=== PATIENT | female | born 1965 | race Caucasian/White ===

== ENCOUNTER 2017-03-08 18:24 | Emergency (ER) | payer MEDICAID ==
[~2017-03-08] VITALS: Ht 165.1 cm; Wt 111.1 kg
--- NOTE | 2017-03-08 19:00 | NUR ---
Came to ER c/o chest pain on and off for few days. Denies chest pain at this time. Noted with high blood pressure. Pt states this is new.
[2017-03-08 19:08] LABS: BASOPHILS # (AUTO) 0.1 K/uL (0.0-8.0); BASOPHILS % (AUTO) 0.6 % (0.0-2.0); EOSINOPHILS % (AUTO) 0.4 % (0.0-7.0); HEMATOCRIT 39.8 % (37-47); HEMOGLOBIN 12.6 G/DL (12.0-16.0); LYMPHOCYTES # (AUTO) 2.9 K/UL (0.8-4.8); LYMPHOCYTES % (AUTO) 26.2 % (20.5-51.5); MEAN CORPUSCULAR HEMOGLOBIN 29.3 UUG (27.0-31.0); MEAN CORPUSCULAR HGB CONC 32 g/dL (32.0-37.0); MEAN CORPUSCULAR VOLUME 92.3 FL (81.0-99.0); MONOCYTES # (AUTO) 0.8 K/UL (0.1-1.30); MONOCYTES % (AUTO) 6.8 % (0.0-11.0); NEUTROPHILS # (AUTO) 7.2 K/UL (1.8-8.9); PLATELET COUNT (AUTO) 270 K/UL (150-450); RED BLOOD CELL COUNT(AUTO) 4.31 MIL/UL (4.2-5.4); WHITE BLOOD COUNT (AUTO) 11.1 K/UL (4.0-11.2)
[2017-03-08 19:19] LABS: CREATININE 0.8 mg/dL (0.6-1.3); POTASSIUM 3.7 mmol/L (3.5-5.1)
--- NOTE | 2017-03-08 19:20 | NUR ---
Seen and evaluated by Dr. Duke.
[2017-03-08] MEDS ORDERED: ASPIRIN 81 MG TAB.CHEW PO ONE (19:30)
[2017-03-08] MEDS ORDERED: hydrALAZINE HCL 20 MG/1 ML VIAL IV ONE ×2 (19:30→20:00)
[2017-03-08 19:31] LABS: BILIRUBIN,DIRECT 0.1 mg/dL (0.0-0.2); BILIRUBIN,TOTAL 0.4 mg/dL (0.2-1.0); TOTAL PROTEIN, SERUM 7.6 g/dL (6.4-8.2)
[2017-03-08] MEDS ORDERED: ASPIRIN 81 MG TAB.CHEW ONE (20:04)
[2017-03-08] MEDS ORDERED: hydrALAZINE HCL 20 MG/1 ML VIAL ONE (20:05)
[2017-03-08] MEDS ORDERED: IV NORMAL SALINE 1000 ML BAG IV ONE (20:30)
[2017-03-08] MEDS ORDERED: METOPROLOL TARTRATE 5 MG/5 ML VIAL IVP ONE ×2 (20:30→23:34)
--- NOTE | 2017-03-08 20:42 | NUR ---
Pt noted to be very anxious,"not feeling well." Noted monitor Sinus tachy rate up to 110/min with PACs. States is very sensitive to meds. Attributes this feeling to Apresoline IV received earlier. Close observation observed.
[2017-03-08] MEDS ORDERED: IV NORMAL SALINE 250 ML IV ONE (20:59)
[2017-03-08] MEDS ORDERED: NORMAL SALINE FLUSH 10 ML DISP.SYRIN ONE (20:59)
[2017-03-08] MEDS ORDERED: IOHEXOL 350 100 ML INFUS..BTL ONE (20:59)
--- NOTE | 2017-03-08 22:30 | NUR ---
Pt undecided to have IV Lopressor be given. BP 168/92.
--- NOTE | 2017-03-08 23:00 | NUR ---
Call placed to [facility], Dr. Stauffer will be paged.
--- NOTE | 2017-03-08 23:30 | NUR ---
Pt consented to taking IV Lopressor, with good effect. Pt's BP and HR gradually improved. Pt's family at bedside.
--- NOTE | 2017-03-08 23:32 | NUR ---
2nd call placed to [facility], Dr. Stauffer will be paged.
[2017-03-08] MEDS ORDERED: LABETALOL HCL 100 MG/20 ML VIAL IV ONE (23:45)
--- NOTE | 2017-03-08 23:45 | NUR ---
Dr. Duke at bedside, spoke with pt.
--- NOTE | 2017-03-09 00:30 | NUR ---
Having second thoughts about being admitted to floor. Pt refused IV Labetalol. aware. Pt and mom plan to go to [facility] from here.
[2017-03-09] MEDS: HYDROCODONE/APAP 5-325MG TABLET PO ONE ×2 (00:57→01:15)
[2017-03-09] MEDS ORDERED: HYDROCODONE/APAP 5-325MG TABLET ONE (01:12)
--- NOTE | 2017-03-09 01:15 | NUR ---
Patient discharged to care of mother in stable conditon. Written and verbal after care instructions given. Patient verbalizes understanding of instructions.
[2017-03-09 01:28] VITALS: BP 160/94
== END 2017-03-09 01:15 | disposition home or self-care (01) ==
LOC: ER 18:25
DX: I16.9 Hypertensive crisis, unspecified (principal); I10 Essential (primary) hypertension
CPT/HCPCS: 36415; 71010; 71275; 80048; 80076; 83880; 84484; 84703; 85025; 85379; 85730; 93005; 96361; 96374; 96375; 99291; A4663; J0360; J3490 ×2; J7030; J7050; Q9967; 70030-TC